=== PATIENT | female | born 1965 | race Caucasian/White ===

== ENCOUNTER 2017-07-28 19:07 | Emergency (ER) | payer OTHER ==
[2017-07-28 19:17] VITALS: BP 114/80; PULSE 64; TEMP 98.1; BMI 20.6
[2017-07-28] MEDS ORDERED: DOXYCYCLINE HYCLATE 100 MG CAPSULE PO ONE ×2 (19:20→19:26)
--- NOTE | 2017-07-28 19:20 | PDOC ---
History of Present Illness - General History Source: Patient Exam Limitations: No Limitations - History of Present Illness Initial Comments: 07/28/17 19:40 The patient is a 51 year old female with no pertinent past medical history who presents to the ED with complaints of tick bite that she noticed today. She states [place] was [place] in the [facility] and felt something on the back of her neck. When her friend took a look they noticed a bite with a possible tick within it. She denies any fevers, chills, nausea, vomiting or diarrhea. She denies any other bites or rashes. <EbonikevinAllegra - Last Filed: 07/28/17 19:40> - General History Source: Patient <Gisselle Messina - Last Filed: 07/29/17 03:04> - General Chief Complaint: Bite Stated Complaint: TICK IMBEDDED BACK OF NECK Time Seen by Provider: 07/28/17 19:20 Past History <Allegra Alexis - Last Filed: 07/28/17 19:40> - Travel Traveled outside of the country in the last 30 days: No Close contact w/someone who was outside of country & ill: No - Past Medical History COPD: No GI Disorders: Yes (GERD) - Suicide/Smoking/Psychosocial Hx Smoking Status: No Smoking History: Never smoked Have you smoked in the past 12 months: No Number of Cigarettes Smoked Daily: 0 Information on smoking cessation initiated: No Hx Alcohol Use: Yes (OCCAS.) Drug/Substance Use Hx: No Substance Use Type: None <Gisselle Messina - Last Filed: 07/29/17 03:04> - Past Medical History Allergies/Adverse Reactions: Allergies Allergy/AdvReac Type Severity Reaction Status Date / Time No Known Allergies Allergy Verified 07/28/17 19:09 Home Medications: Ambulatory Orders Unobtainable [Unobtainable] 07/28/17 Review of Systems - Review of Systems Able to Perform ROS?: Yes Comments:: 07/28/17 19:40 CONSTITUTIONAL: Absent: fever, no chills, no fatigue EYES: Absent: visual changes ENT: Absent: ear pain, no sore throat CARDIOVASCULAR: Absent: chest pain, no palpitations RESPIRATORY: Absent: cough, no SOB GI: Absent: abdominal pain, no nausea, no vomiting, no constipation, no diarrhea GENITOURINARY: Absent: dysuria, no frequency, no hematuria MUSKULOSKELETAL: Absent: back pain, no arthralgia, no myalgia SKIN: Present: tick bite Absent: rash NEURO: Absent: headache All Other Systems: Reviewed and Negative <Allegra Alexis - Last Filed: 07/28/17 19:40> *Physical Exam - Vital Signs Last Vital Signs Temp Pulse Resp BP Pulse Ox 98.1 F 64 16 114/80 100 07/28/17 19:10 07/28/17 19:10 07/28/17 19:10 07/28/17 19:10 07/28/17 19:10 - Physical Exam Comments: 07/28/17 19:41 GENERAL: Well-appearing, well-nourished. No apparent distress. HEENT: Normocephalic, atraumatic. PERRL, EOM intact. CARDIOVASCULAR: Normal S1, S2. Regular rate and rhythm. PULMONARY: Clear to auscultation bilaterally. ABDOMEN: Soft, non-distended, non-tender. EXTREMITIES: Normal ROM in all four extremities. No gross deformities. SKIN: Warm, dry. No rash NEUROLOGICAL: No focal neurological deficits. <Allegra Alexis - Last Filed: 07/28/17 19:40> - Vital Signs Last Vital Signs Temp Pulse Resp BP Pulse Ox 98.1 F 64 16 114/80 100 07/28/17 19:10 07/28/17 19:10 07/28/17 19:10 07/28/17 19:10 07/28/17 19:10 <Gisselle Messina - Last Filed: 07/29/17 03:04> ED Treatment Course - Medications Given in the ED: ED Medications Discontinued Medications Generic Name Dose Route Start Last Admin Trade Name Freq PRN Reason Stop Dose Admin Doxycycline Hyclate 100 mg 07/28/17 19:20 07/28/17 19:26 Vibramycin - PO 07/28/17 19:21 100 mg ONCE ONE Administration <Allegra Alexis - Last Filed: 07/28/17 19:40> Medical Decision Making - Medical Decision Making 07/29/17 01:31 Pt states that she was in the [facility] and had a tick on the back of the neck. Tick fell off and now she has only a blood clot. Clot was washed off, and bacitracin ointment placed there. Pt received doxycycline prophylaxis. She checked her entire body for ticks. I checked her scalp. No other ticks. Pt is stable for discharge home. <Gisselle Messina - Last Filed: 07/29/17 03:04> *DC/Admit/Observation/Transfer - Attestations Scribe Attestion: 07/28/17 19:41 Documentation prepared by Allegra Alexis, acting as medical fee clerk for Gisselle Messina MD. <Allegra Alexis - Last Filed: 07/28/17 19:40> - Discharge Dispostion Decision to Admit order: No <Gisselle Messina - Last Filed: 07/29/17 03:04> Diagnosis at time of Disposition: Tick bite - Discharge Dispostion Disposition: HOME Condition at time of disposition: Stable - Patient Instructions Printed Discharge Instructions: How to Remove a Tick, How to Care for an Insect Bite or Sting
== END 2017-07-28 19:53 | disposition home or self-care (01) ==
LOC: FER 19:07
DX: S10.96XA Insect bite of unspecified part of neck, initial encounter (principal); W57.XXXA Bitten or stung by nonvenomous insect and other nonvenomous arthropods, initial encounter; Y93.89 Activity, other specified; Y92.89 Other specified places as the place of occurrence of the external cause; K21.9 Gastro-esophageal reflux disease without esophagitis
CPT/HCPCS: 99281-25

== ENCOUNTER 2017-12-12 22:14 | Emergency (ER) | payer OTHER ==
--- NOTE | 2017-12-12 22:16 | PDOC ---
History of Present Illness - General History Source: Patient Exam Limitations: No Limitations - History of Present Illness Initial Comments: 12/12/17 22:42 The patient is a 52 year old female, with no significant past medical history, who presents to the emergency department with, pain to the right ankle. 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 She reports immediate pain to the ankle and was able to ambulate with pain and assistance. She iced the ankle approximately 15 minutes after the injury at which time she noticed swelling to the affected area. She denies any loss of consciousness, trauma to the head, neck, or other extremities. She denies recent fevers, chills, headache or dizziness. She denies recent nausea, vomit, diarrhea or constipation. She denies recent dysuria, frequency, urgency or hematuria. She denies recent chest pain or shortness of breath. Allergies: NKA Past surgical history: None reported. Social history: Nonsmoker. Social alcohol usage. Primary Care Physician: Dr. Aguilar <Willard Gutierres - Last Filed: 12/12/17 22:57> <Shayy King - Last Filed: 12/13/17 03:40> - General Chief Complaint: Injury Stated Complaint: RT ANKLE INJURY Time Seen by Provider: 12/12/17 22:16 Past History <Willard Gutierres - Last Filed: 12/12/17 22:57> - Past Medical History COPD: No GI Disorders: Yes (GERD) - Suicide/Smoking/Psychosocial Hx Smoking Status: No Smoking History: Never smoked Have you smoked in the past 12 months: No Number of Cigarettes Smoked Daily: 0 Hx Alcohol Use: Yes (OCCAS.) Drug/Substance Use Hx: No Substance Use Type: None <Shayy King - Last Filed: 12/13/17 03:40> - Past Medical History Allergies/Adverse Reactions: Allergies Allergy/AdvReac Type Severity Reaction Status Date / Time No Known Allergies Allergy Verified 07/28/17 19:09 Home Medications: Ambulatory Orders Unobtainable 07/28/17 Review of Systems - Review of Systems Able to Perform ROS?: Yes Comments:: 12/12/17 22:42 CONSTITUTIONAL: Absent: fever, no chills, no fatigue EYES: Absent: visual changes ENT: Absent: ear pain, no sore throat CARDIOVASCULAR: Absent: chest pain, no palpitations RESPIRATORY: Absent: cough, no SOB GI: Absent: abdominal pain, no nausea, no vomiting, no constipation, no diarrhea GENITOURINARY: Absent: dysuria, no frequency, no hematuria MUSKULOSKELETAL: Present: Right ankle pain. Absent: back pain Absent: rash NEURO: Absent: headache All Other Systems: Reviewed and Negative <Willard Gutierres - Last Filed: 12/12/17 22:57> *Physical Exam - Vital Signs Last Vital Signs Temp Pulse Resp BP Pulse Ox 98.9 F 64 16 111/68 100 12/12/17 22:21 12/12/17 22:21 12/12/17 22:21 12/12/17 22:21 12/12/17 22:21 - Physical Exam Comments: 12/12/17 22:43 GENERAL: The patient is awake, alert, and fully oriented, in no acute distress. HEAD:Normal with no signs of trauma. EYES: Pupils equal, round and reactive to light, extraocular movements intact, sclera anicteric, conjunctiva clear. +EXTREMITIES: Right ankle: Moderate tenderness and mild edema to the lateral malleolus. No ligamentous instability or deformity. No ecchymosis. Palpable DP and PT pulses 2+ and equal. No metatarsal tenderness. Proximal leg normal without deformity or tenderness. NEUROLOGICAL: Normal speech. PSYCH: Normal mood, normal affect. SKIN: Warm, Dry, normal turgor, no rashes or lesions noted. <Willard Gutierres - Last Filed: 12/12/17 22:57> Progress Note - Progress Note Progress Note: Documentation has been prepared under my direction and personally reviewed by me in its entirety. I attest that this documented accurately reflects all work, treatment, procedures and medical decision making performed by me. 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 Exam as noted notable for lateral malleolus edema/tenderness without deformity or ecchymosis. No foot edema or tenderness present Right ankle x-ray performed and interpreted by me: Cannot rule out nondisplaced fracture of the distal fibula. No other fracture/dislocation or other abnormality seen on x-ray. Posterior splint placed on the lower leg/ankle/foot using Ortho-Glass material and Hill wrap. Distal neurovascular functioning intact after placement of the splint. Patient will be discharged with instructions to elevate the right leg as much as possible over the next several days. She should use crutches for ambulation until seen by orthopedist. Patient does not currently have orthopedist and given referral information for Drs. Newman/Dung, on-call for orthopedic surgery. She should follow-up with them in the next 4-5 days. <Shayy King - Last Filed: 12/13/17 03:40> *DC/Admit/Observation/Transfer - Attestations Scribe Attestion: 12/12/17 22:43 Documentation prepared by Willard Gutierres, acting as biomedical engineering director for Shayy King MD. <Willard Gutierres - Last Filed: 12/12/17 22:57> <Shayy King - Last Filed: 12/13/17 03:40> Diagnosis at time of Disposition: Fibula fracture Qualifiers: Encounter type: initial encounter Fibula location: distal Fracture type: closed Fracture morphology: unspecified fracture morphology Laterality: right Qualified Code(s): S82.831A - Other fracture of upper and lower end of right fibula, initial encounter for closed fracture - Discharge Dispostion Disposition: HOME Condition at time of disposition: Stable - Referrals Referrals: Hood Aguilar MD [Primary Care Provider] - Diogenes Newman MD [Staff Physician] - Call tomorrow - Patient Instructions Printed Discharge Instructions: DI for Ankle Fracture Additional Instructions: Ice/elevation of right leg as much as possible over the next 2-3 days Acetaminophen as needed for pain Keep splint in place Crutches for ambulation until seen by orthopedist Follow-up with Dr. Newman/Dung; call office tomorrow for follow-up within the next 4-5 days Return to ER if you have more severe pain - Post Discharge Activity
[2017-12-12 22:30] VITALS: BP 111/68; PULSE 64; TEMP 98.9; BMI 20.6
== END 2017-12-12 23:33 | disposition home or self-care (01) ==
LOC: FER 22:14
PROC: 2W3QX1Z Immobilization of Right Lower Leg using Splint (ICD-10-PCS; principal; 2017-12-12)
DX: S82.831A Other fracture of upper and lower end of right fibula, initial encounter for closed fracture (principal); X50.0XXA Overexertion from strenuous movement or load, initial encounter; Y93.01 Activity, walking, marching and hiking; Y92.89 Other specified places as the place of occurrence of the external cause; Y99.0 Civilian activity done for income or pay
CPT/HCPCS: 73610-TC-RT-FY; 99282-25